=== PATIENT | female | born 1955 | race Caucasian/White ===

== ENCOUNTER → 2016-07-13 | Outpatient (CLI) | payer BC ==
[~2016-07-13] MED LIST: CEPH500C2 PO; FEXO1TAB58 PO; LEVO50TA PO; MULT-506 PO; OXYC-57 PO; PANT40TA PO; VNTHFA/IN INH
--- NOTE | 2016-07-13 14:21 | DIAGNOSTIC IMAGING REPORT ---
LEFT KNEE 1 OR 2 VIEWS ROUTINE CLINICAL HISTORY: Left knee pain. COMPARISON: Knee radiographs April 29, 2008. FINDINGS: Alignment of the left knee is anatomic. No fracture or joint effusion is identified. Joint spaces are preserved. No osseous lesion is identified. IMPRESSION: Unremarkable left knee radiographs. Electronically signed by: Ghulam Del Valle M.D. 07/13/2016 2:20 PM Dictated Date/Time: 07/13/2016 2:18 PM
== END | disposition home or self-care (01) ==
LOC: C.RAD1850 13:11
PROVIDERS: ATTEND Family Medicine
DX: M25.562 Pain in left knee (principal)

== ENCOUNTER → 2016-07-30 | Outpatient (CLI) | payer BC ==
--- NOTE | 2016-07-30 15:38 | DIAGNOSTIC IMAGING REPORT ---
LEFT KNEE 1 OR 2 VIEWS CLINICAL HISTORY: LEFT KNEE PAIN pain COMPARISON: None. DISCUSSION: The bones and joint spaces appear intact. There is no evidence of fracture, dislocation or bony disease. There is no evidence for soft tissue swelling. IMPRESSION: Negative study. Electronically signed by: Aidan Christianson M.D. 07/30/2016 3:37 PM Dictated Date/Time: 07/30/2016 3:37 PM
== END | disposition home or self-care (01) ==
LOC: C.RDSM 15:07
PROVIDERS: ATTEND Physical Medicine & Rehabilitation Sports Medicine
DX: M25.562 Pain in left knee (principal)

== ENCOUNTER → 2016-08-20 | Outpatient (CLI) | payer BC ==
--- NOTE | 2016-08-20 07:38 | DIAGNOSTIC IMAGING REPORT ---
ABDOMEN COMPLETE (US) CLINICAL HISTORY: Right upper quadrant pain. COMPARISON STUDY: CT of the abdomen and pelvis January 30, 2016 and right upper quadrant ultrasound May 19, 2017. FINDINGS: This exam is compromised by suboptimal penetration. Increased hepatic echogenicity represents fatty infiltration. No hepatic lesions are identified and there is no biliary ductal dilatation. The gallbladder is surgically absent. The pancreatic body is normal. The head and tail are partially obscured. The size of the spleen is normal. The right kidney measures 9.7 cm in maximal dimension and the left measures 10.1 cm. A 2.3 cm cyst arises from the lower pole of the right kidney. There is no hydronephrosis. The caliber of the abdominal aorta is normal. Visual portions of the IVC are patent. There is no ascites. IMPRESSION: 1. No biliary ductal dilatation status post cholecystectomy. 2. Fatty liver. 3. No hydronephrosis. Electronically signed by: Ghulam Del Valle M.D. 08/20/2016 7:36 AM Dictated Date/Time: 08/20/2016 7:35 AM
[2016-08-20 09:27] LABS: BASO % 0.3 %; BASO ABS # 0.02 K/uL (0-0.2); COMPLETE YES; EOS % 1.3 %; HEMATOCRIT 43.8 % (37-47); IG% 0.3 %; LYMPH ABS # 3.31 K/uL (1.2-3.4); MEAN CELL VOLUME 85.7 fL (80-100); MEAN CORPUSCULAR HEMOGLOBIN 28.6 pg (25-34); MEAN CORPUSCULAR HGB CONC 33.3 g/dl (32-36); MEAN PLATELET VOLUME 8.9 fL (7.4-10.4); MONO % 6.4 %; NEUT % 42.7 %; PLATELET COUNT 292 K/uL (130-400); RED BLOOD COUNT 5.11 M/uL (4.2-5.4); WHITE BLOOD COUNT 6.75 K/uL (4.8-10.8)
[2016-08-20 09:39] LABS: ALT/SGPT 29 U/L (12-78); BLOOD UREA NITROGEN 17 mg/dl (7-18); BUN/CREATININE RATIO 18.4 (10-20); CALCIUM 9.1 mg/dl (8.5-10.1); CARBON DIOXIDE 26 mmol/L (21-32); CHLORIDE 108 mmol/L (98-107); GLUCOSE 101 mg/dl (70-99); POTASSIUM 4.6 mmol/L (3.5-5.1); SODIUM 141 mmol/L (136-145)
[2016-08-20 09:41] LABS: ALKALINE PHOSPHATASE 74 U/L (45-117); AST/SGOT 19 U/L (15-37)
== END | disposition home or self-care (01) ==
LOC: C.ULTR 06:27
PROVIDERS: ATTEND Family Medicine
DX: R10.11 Right upper quadrant pain (principal); K76.0 Fatty (change of) liver, not elsewhere classified

== ENCOUNTER 2016-09-30 14:08 | Emergency (ER) | payer BC, OTHER ==
[~2016-09-30] VITALS: Ht 154.9 cm; Wt 81.0 kg
[~2016-09-30 14:08] MED LIST changes: -CEPH500C2 PO; -FEXO1TAB58 PO; -LEVO50TA PO; -MULT-506 PO; -PANT40TA PO; -VNTHFA/IN INH
[2016-09-30 14:13] VITALS: BP 154/92; PULSE 114; TEMP 36.8; O2SAT 97; Ht 154.9 cm; Wt 81.0 kg
[2016-09-30] MEDS ORDERED: ACETAMINOPHEN 500 MG TAB PO STA (14:29)
[2016-09-30] MEDS ORDERED: XYLOCAINE 1%/SOD BICARB 20 ML VIAL INFIL ONE (14:30)
[2016-09-30] MEDS ORDERED: VNTHFA/IN INH (14:49)
[2016-09-30] MEDS ORDERED: MULT-506 PO (14:49)
[2016-09-30] MEDS ORDERED: LEVO50TA PO (14:55)
--- NOTE | 2016-09-30 15:04 | DIAGNOSTIC IMAGING REPORT ---
RIGHT THIRD TOE 3 VIEWS HISTORY: Right third toe pain. R/O BONE INVOLVEMENT Right COMPARISON: None. FINDINGS: There is no fracture or dislocation. Mild soft tissue swelling. No radiopaque foreign bodies. IMPRESSION: No fractures within the right third toe. Electronically signed by: Daniele Joseph M.D. 09/30/2016 3:02 PM Dictated Date/Time: 09/30/2016 2:51 PM
[2016-09-30] MEDS ORDERED: CEPH500C2 PO (15:09)
[2016-09-30] MEDS ORDERED: FEXO1TAB58 PO (15:32)
[2016-09-30] MEDS ORDERED: PANT40TA PO (15:32)
--- NOTE | 2016-10-02 09:21 | EMERGENCY ROOM VISIT NOTE ---
ED Visit Note First contact with patient: 14:15 Chief Complaint: I cut my right middle toe at work. History of Present Illness: Ms. Patiño is a 61-year-old white female who ambulates into the ED complaining of a right middle toe laceration. Patient reports approximately one hour ago she was at work carrying a tray of metal fillings. On a piece of metal fell off the tray and struck the top of her right middle toe and she sustained a laceration. Prior to arrival at the hospital she reports coworkers cleansed and control bleeding. Currently she is complaining of a throbbing discomfort over the left middle toe in the area of her laceration. She rates her discomfort 4/10. Her pain is nonradiating. Her pain worsens with palpation and pushing off during ambulation. She has not identified any alleviating factors related to the pain. She has not taken any medications for pain prior to arrival at the hospital. She denies any associated symptoms including ankle pain, other foot pain, toe weakness/numbness/tingling. Review of Systems: As noted above in history of present illness. Past Medical History: Asthma, bronchitis, GERD, hepatic vein thrombosis, hypothyroidism and status post unspecified surgery to the shoulder, cholecystectomy, appendectomy and unspecified hernia repair. Current Medications: Tiki-D, Protonix, multivitamins, albuterol, Synthroid Allergies to Medications: Doxycycline, tetracycline and tramadol. Social History: Patient is currently employed; she feels safe in her home environment; she denies tobacco use and admits to alcohol use. Tetanus Immunization Status: Patient reports up-to-date. Physical Examination: Vital Signs: Date Time Temp Pulse Resp B/P Pulse Ox O2 Delivery O2 Flow Rate FiO2 09/30/16 14:13 36.8 114 18 154/92 97 Room Air GENERAL: 61-year-old female in mild distress due to pain, nontoxic-appearing, afebrile and hemodynamically stable. NEUROLOGICAL: Awake, alert and oriented to person, place and time. Answering questions appropriately and following commands. SKIN: Warm, dry and pink. Right Middle Toe: 2.8 cm full-thickness laceration over the proximal phalanx with no active bleeding. RIGHT FOOT: Soft tissue injury as noted above. There is no gross bony deformity. Minimal tenderness over the DIP and PIP joint but no tenderness extending into the MCP or foot. Full range of motion of the PIP, DIP and MCP joint against resistance. When I opened up the wound to look for foreign material the extensor tendon was exposed within the laceration and was not injured. Throughout the toes the skin was warm and pink and capillary refill is brisk. She is able to distinguish light sensations through all dermatomes. ED Course: Patient is assessed as noted above. Patient was given one gram of Tylenol by mouth for pain. Right Middle Toe X-Rays: Were read by myself and the radiologist showing no acute fractures or dislocations. Wound Repair: Complexity: Basic. Verbal consent was obtained after the risks and benefits were explained. The skin was prepped with betadine and a sterile field set. Wound edges of the wound was anesthetized with 1.3 ml buffered 1% lidocaine. The wound was explored for foreign bodies and none found. Copious irrigation was performed using sterile saline. With direct pressure the bleeding subsided. Debridement was not performed. The wound edges were approximated using 5-0 Ethilon with 5 simple interrupted sutures. Hemostasis and excellent approximation was achieved. Antibacterial ointment and a sterile dressing applied. No complications and the patient tolerated the procedure well. Patient was educated about tonight's findings and instructed on his treatment plan; he verbalizes understanding and agreement with this plan. Clinical Impression: Laceration of the right middle toe. Work related injury. Disposition: Patient discharged home in stable condition; prior to departure he was reassessed and subjectively reported she was pain-free. Plan: Comfort measures, wound care, and signs of infection were discussed with the patient. Because of the exposed tendon patient was prophylactically put on Keflex 500 mg 3 times a day for 7 days. Patient was encouraged to follow-up with Workmen's Compensation or return ED for any signs of infection and/or suture removal in 10-12 days.
== END 2016-09-30 15:20 | disposition home or self-care (01) ==
LOC: C.EDB 14:09 → C.EDD 15:20
DX: S91.115A Laceration without foreign body of left lesser toe(s) without damage to nail, initial encounter (principal); W45.8XXA Other foreign body or object entering through skin, initial encounter; Y92.89 Other specified places as the place of occurrence of the external cause; Y99.0 Civilian activity done for income or pay; J45.909 Unspecified asthma, uncomplicated; K21.9 Gastro-esophageal reflux disease without esophagitis; E03.9 Hypothyroidism, unspecified; Z79.899 Other long term (current) drug therapy

== ENCOUNTER 2016-10-04 13:21 | Emergency (ER) | payer OTHER ==
[~2016-10-04] VITALS: Ht 154.9 cm; Wt 82.1 kg
[~2016-10-04 13:21] MED LIST changes: +CEPH500C2 PO; +FEXO1TAB58 PO; +LEVO50TA PO; +MULT-506 PO; -OXYC-57 PO; +PANT40TA PO; +VNTHFA/IN INH
[2016-10-04 13:46] VITALS: TEMP 37; Ht 154.9 cm; Wt 82.1 kg
--- NOTE | 2016-10-04 14:28 | EMERGENCY ROOM VISIT NOTE ---
History First contact with patient: 13:58 Chief Complaint: FOOT PAIN Stated Complaint: PAIN IN LEFT FOOT History of Present Illness The patient is a 61 year old female who presents to the Emergency Room with complaints of left foot pain and bruising. She states she was here 5 days ago after an incident at work where a metal object fell onto her feet. She states she was wearing flip-flops. She had laceration to her right foot that was repaired at that time, but states she never had her left foot checked. Over the past 2 days she has noticed more pain and bruising to that area especially when she is wearing shoes. She states she is here to get the foot checked to make sure nothing is broken. She denies any numbness, tingling, ankle pain, or any other complaints. Review of Systems GENERAL: Denies fevers, chills, malaise, unintentional weight changes. HEENT: Denies dizziness, visual problems, hearing loss, tinnitus. Denies difficulty swallowing or oral lesions. PULMONARY: Denies cough, shortness of breath, sputum production or hemoptysis. CARDIOVASCULAR: Denies chest pain, palpitations, dyspnea on exertion, orthopnea or peripheral edema. GASTROINTESTINAL: Denies diarrhea, constipation, nausea, vomiting, or abdominal pain. GENITOURINARY: Denies dysuria, frequency, urgency or nocturia. NEUROLOGIC: Denies history of epilepsy, CVA, TIA or chronic headaches. MUSCULOSKELETAL: + Left foot pain, bruising, swelling. Denies history of joint tenderness/swelling. SKIN: Denies rashes or lesions. PSYCHIATRIC: Denies history of depression or mental illness. ENDOCRINE: Denies history of diabetes, thyroid disorders, abnormal hair growth or sexual dysfunction. Past Medical/Surgical History Medical Problems: (1) Asthmatic bronchitis (2) GERD (3) Hepatic vein thrombosis Family History FH: heart disease Social History Smoking Status: Never Smoker Alcohol Use: occasionally Drug Use: none Marital Status: Housing Status: lives with significant other Occupation Status: employed Current/Historical Medications Scheduled Cephalexin Monohydrate (Keflex), 500 MG PO TID Fexofenadine-Pseudoephedrine (Tiki-D 24 Hour Allergy), 1 TAB PO QAM Levothyroxine Sodium (Synthroid), 50 MCG PO DAILY Multivitamin (Multivitamin), 1 TAB PO QAM Pantoprazole (Protonix), 40 MG PO QAM Scheduled PRN Albuterol Hfa (Ventolin Hfa), 2 PUFFS INH Q4H PRN for RN Allergies Coded Allergies: Doxycycline (Verified Allergy, Intermediate, RASH, 10/04/16) Tramadol (Verified Allergy, Intermediate, rash, 10/04/16) Tetracyclines (Verified Allergy, Mild, RASH, 10/04/16) Physical Exam Vital Signs Date Time Temp Pulse Resp B/P Pulse Ox O2 Delivery O2 Flow Rate FiO2 10/04/16 15:46 98 18 138/93 95 10/04/16 15:41 98 18 138/93 95 Room Air 10/04/16 13:46 37.0 95 18 145/89 96 Room Air Physical Exam CONSTITUTIONAL: No acute distress. Well appearing and well nourished. Alert and oriented X 4 with normal affect. HEENT: Normocephalic, atraumatic. Pupils equal, round and reactive to light, EOMI. TMs normal. Pharynx normal. NECK: Supple, full active range of motion without discomfort. RESPIRATORY: Clear to auscultation bilaterally with no wheezing, crackles, rhonchi or stridor. Equal expansion bilaterally. CARDIOVASCULAR: Regular rate and rhythm with no murmurs, rubs or gallops. Normal peripheral perfusion. No edema. GASTROINTESTINAL: Soft, nontender, nondistended. Bowel sounds present in all quadrants. MUSCULOSKELETAL: Full range of motion of all joints without discomfort. There is mild swelling and ecchymosis to the dorsum of the left foot, tender to palpation. DP and PT pulses intact. Brisk cap refill. Sensation intact. INTEGUMENTARY: No rash or other significant dermatologic conditions noted. NEUROLOGIC: Cranial nerves II-XII grossly intact. No focal neurologic deficits noted. Medical Decision & Procedures ER Provider Diagnostic Interpretation: LEFT FOOT MIN 3 VIEWS ROUTINE CLINICAL HISTORY: Left foot pain and bruising following trauma. COMPARISON: Left foot radiograph August 08, 2014. FINDINGS: The tarsometatarsal joints are intact. No acute fracture is identified. Alignment of the left foot is anatomic. IMPRESSION: No acute fracture or dislocation of the left foot. Medical Decision Patient with left foot contusion, x-ray shows no acute bony abnormality. Patient was offered Tylenol or ibuprofen for pain, she declines this stating her pain is not that bad. Patient encouraged to continue follow-up with her PCP as indicated, she verbalized understanding. Impression Primary Impression: Contusion of foot Departure Information Dispostion Home / Self-Care Condition GOOD Referrals Coral Crisostomo D.O. (PCP) Patient Instructions ED Contusion Foot, My [facility] Additional Instructions Please continue follow-up with her PCP as directed. You may take Tylenol or ibuprofen as needed for pain. Ice/heat therapy may also be helpful for your pain. This return to the ER for any new or worsening symptoms or concerns. Problem Qualifiers Primary Impression: Contusion of foot Encounter type: initial encounter Laterality: left Qualified Codes: S90.32XA - Contusion of left foot, initial encounter
--- NOTE | 2016-10-04 14:47 | DIAGNOSTIC IMAGING REPORT ---
LEFT FOOT MIN 3 VIEWS ROUTINE CLINICAL HISTORY: Left foot pain and bruising following trauma. COMPARISON: Left foot radiograph August 08, 2014. FINDINGS: The tarsometatarsal joints are intact. No acute fracture is identified. Alignment of the left foot is anatomic. IMPRESSION: No acute fracture or dislocation of the left foot. Electronically signed by: Ghulam Del Valle M.D. 10/04/2016 2:46 PM Dictated Date/Time: 10/04/2016 2:42 PM
[2016-10-04 15:46] VITALS: BP 138/93; PULSE 98; O2SAT 95
== END 2016-10-04 15:47 | disposition home or self-care (01) ==
LOC: C.EDB 13:22 → C.EDD 15:47
DX: S90.32XD Contusion of left foot, subsequent encounter (principal); W20.8XXD Other cause of strike by thrown, projected or falling object, subsequent encounter; Y99.0 Civilian activity done for income or pay; Y92.89 Other specified places as the place of occurrence of the external cause; J45.909 Unspecified asthma, uncomplicated; K21.9 Gastro-esophageal reflux disease without esophagitis; Z86.718 Personal history of other venous thrombosis and embolism; Z79.899 Other long term (current) drug therapy

== ENCOUNTER 2016-10-10 07:21 | Emergency (ER) | payer OTHER ==
[~2016-10-10] VITALS: Ht 157.5 cm; Wt 81.5 kg
[~2016-10-10 07:21] MED LIST changes: -CEPH500C2 PO
[2016-10-10 07:28] VITALS: BP 145/92; PULSE 98; TEMP 36.7; O2SAT 97; Ht 157.5 cm; Wt 81.5 kg
--- NOTE | 2016-10-10 07:48 | EMERGENCY ROOM VISIT NOTE ---
ED Visit Note First contact with patient: 07:32 CHIEF COMPLAINT: Suture removal This patient returns to the ED today for removal of sutures that were placed 10 days ago. There has been no swelling, redness, or drainage from the wound. The patient feels like the laceration is healing well. REVIEW OF SYSTEMS: Head: No headache, injury or neck pain. Skin: No rash, new lesions, or masses. General: No fever or chills, fatigue, loss of appetite , or significant recent weight gain or loss. PMH: The patient is healthy; there is no significant medical or surgical history. SOCIAL HISTORY: Patient lives at home. PHYSICAL EXAM: Vital Signs: Reviewed Nurse's notes. There is a sutured wound on the middle toe with no signs of infection. There is no erythema, swelling, or tenderness. EMERGENCY DEPARTMENT COURSE: The sutures were removed without any difficulty and there was no separation of the wound edges. DIAGNOSIS: Healing laceration and suture removal DISCHARGE INSTRUCTIONS AND TREATMENT: Wash any remaining crusts off of the wound today and resume your normal activities. Problem List Medical Problems: (1) GERD Status: Chronic (2) Hepatic vein thrombosis Status: Resolved Current/Historical Medications Scheduled Fexofenadine-Pseudoephedrine (Tiki-D 24 Hour Allergy), 1 TAB PO QAM Levothyroxine Sodium (Synthroid), 50 MCG PO DAILY Multivitamin (Multivitamin), 1 TAB PO QAM Pantoprazole (Protonix), 40 MG PO QAM Scheduled PRN Albuterol Hfa (Ventolin Hfa), 2 PUFFS INH Q4H PRN for RN Allergies Coded Allergies: Doxycycline (Verified Allergy, Intermediate, RASH, 10/10/16) Tramadol (Verified Allergy, Intermediate, rash, 10/10/16) Tetracyclines (Verified Allergy, Mild, RASH, 10/10/16) Vital Signs Date Time Temp Pulse Resp B/P Pulse Ox O2 Delivery O2 Flow Rate FiO2 10/10/16 07:28 36.7 98 16 145/92 97 Room Air Departure Information Impression Primary Impression: Encounter for removal of sutures Dispostion Home / Self-Care Condition GOOD Referrals Coral Crisostomo D.O. (PCP) Forms HOME CARE DOCUMENTATION FORM, School Instructions, Work Instructions, IMPORTANT VISIT INFORMATION Patient Instructions My [facility], ED Wound Check Sutr Remove No Infec Additional Instructions You have been examined and treated today on an emergency basis only. This is not a substitute for, or an effort to provide, complete comprehensive medical care. It is impossible to recognize and treat all injuries or illnesses in a single emergency department visit. It is therefore important that you follow up closely with Dr Crisostomo. Call as soon as possible for an appointment. Thank you for your time and consideration. I look forward to speaking with you again soon. Please don't hesitate to call us if you have any questions.
== END 2016-10-10 07:50 | disposition home or self-care (01) ==
LOC: C.EDB 07:22
DX: Z48.02 Encounter for removal of sutures (principal); S91.119D Laceration without foreign body of unspecified toe without damage to nail, subsequent encounter; X58.XXXD Exposure to other specified factors, subsequent encounter; K21.9 Gastro-esophageal reflux disease without esophagitis; Z86.718 Personal history of other venous thrombosis and embolism; Z79.899 Other long term (current) drug therapy

== ENCOUNTER → 2016-11-04 | Outpatient (CLI) | payer BC ==
--- NOTE | 2016-11-04 17:15 | DIAGNOSTIC IMAGING REPORT ---
CHEST AND ABDOMEN 2 VIEWS HISTORY: Right upper quadrant abdominal pain. COMPARISON: Chest 04/14/2016. Abdomen and pelvis CT 01/30/2016. FINDINGS: The lungs are clear. The heart is normal in size. Cholecystectomy. No pneumoperitoneum. No pneumatosis. No renal or ureteral calculi. No dilated loops of small bowel to suggest an obstruction. IMPRESSION: No acute cardiopulmonary process. No evidence for bowel obstruction. Electronically signed by: Daniele Joseph M.D. 11/04/2016 5:14 PM Dictated Date/Time: 11/04/2016 5:12 PM
== END | disposition home or self-care (01) ==
LOC: C.RAD1850 16:40
PROVIDERS: ATTEND Nurse Practitioner Family
DX: I81 Portal vein thrombosis (principal); R10.11 Right upper quadrant pain; R14.0 Abdominal distension (gaseous)

== ENCOUNTER → 2016-11-05 | Outpatient (CLI) | payer BC ==
--- NOTE | 2016-11-05 07:17 | DIAGNOSTIC IMAGING REPORT ---
DOPPLER ULTRASOUND OF THE MAJOR HEPATIC VESSELS CLINICAL HISTORY: Abdominal distention. Evaluate for portal venous thrombus. COMPARISON STUDY: CT of the abdomen and pelvis January 30, 2016 and abdominal ultrasound August 20, 2016. FINDINGS: The main, left and right portal veins are patent with appropriately directed flow. Hepatic veins are partially obscured but appear patent. This exam is compromised by suboptimal penetration. IMPRESSION: 1. Patent major hepatic vessels with appropriately directed flow. 2. Study compromised by suboptimal penetration. Electronically signed by: Ghulam Del Valle M.D. 11/05/2016 7:16 AM Dictated Date/Time: 11/05/2016 7:11 AM
== END | disposition home or self-care (01) ==
LOC: C.ULTR 06:18
PROVIDERS: ATTEND Nurse Practitioner Family
DX: R14.0 Abdominal distension (gaseous) (principal); R10.11 Right upper quadrant pain; I81 Portal vein thrombosis

== ENCOUNTER → 2016-11-11 | Outpatient (CLI) | payer BC ==
--- NOTE | 2016-11-16 16:18 | PULMONARY FUNCTION TEST ---
Interpretation is based off ACCP/ATS criteria. SPIROMETRY: Within normal limits. INTERPRETATION: Normal spirometry.
== END | disposition home or self-care (01) ==
LOC: C.RC 12:32
PROVIDERS: ATTEND Family Medicine
DX: J02.9 Acute pharyngitis, unspecified (principal); J45.20 Mild intermittent asthma, uncomplicated; J20.9 Acute bronchitis, unspecified

== ENCOUNTER → 2016-12-27 | Outpatient (CLI) | payer BC | END | disposition home or self-care (01) | LOC: C.PATHSPEC 11:47 | PROVIDERS: ATTEND Ophthalmology | DX: H02.824 Cysts of left upper eyelid (principal) ==

== ENCOUNTER → 2016-12-31 | Outpatient (CLI) | payer BC ==
--- NOTE | 2016-12-31 15:41 | EXERCISE STRESS ECHO ---
*NOTICE TO RECEIVING REPUBLICAN AGENCY This information is strictly Confidential and protected under [place] law. [place] law prohibits you from making any further disclosure of this information unless further disclosure is expressly permitted by the written consent of the person to whom it pertains or is authorized by law. A general authorization for the release of medical or other information is not sufficient for this purpose. Hospital accepts no responsibility if the information is made available to any other person, INCLUDING THE PATIENT. Interpretation Summary * Name: ALEXX WOLF Study Date: 12/31/2016 11:42 AM BP: 128/95 mmHg * Patient Location: [facility] HR: 102 * : 1955 (M/d/yyyy) Gender: Female Height: 61 in * Age: 61 yrs Ethnicity: [place] Weight: 169 lb * Ordering Physician: Addi Donnelly * Referring Physician: Addi Donnelly PA-C * Performed By: Adalberto Spann MD * * Reason For Study: SOB with Chest Pain * BSA: 1.8 m2 * -- Conclusions -- * Left ventricular systolic function is normal. * Grade I diastolic dysfunction, (abnormal relaxation pattern). * Diagnostic exercise echocardiogram without evidence of inducible ischemia Procedure Details * Left Ventricular Findings with Stress Diagnostic exercise echocardiogram without evidence of inducible ischemia * Left Ventricle The left ventricle is normal in size. There is normal left ventricular wall thickness. Left ventricular systolic function is normal. Grade I diastolic dysfunction, (abnormal relaxation pattern). The left ventricular wall motion is normal at rest. * Right Ventricle The right ventricle is grossly normal size. The right ventricular systolic function is normal. * Atria The left atrial size is normal. Right atrial size is normal. * Mitral Valve The mitral valve is grossly normal. There is trace mitral regurgitation. * Tricuspid Valve The tricuspid valve is not well visualized, but is grossly normal. Significant tricuspid regurgitation is absent. * Aortic Valve The aortic valve is normal in structure and function. No hemodynamically significant valvular aortic stenosis. There is no significant aortic regurgitation. * Pericardium There is no pericardial effusion. * Stress Parameters Normal baseline electrocardiogram. Some ST segement flattening at peak exertion. No definite ischemia changes The stress portion of this study was personally supervised by the undersigned interpreting physician. Rest heart rate was '93' BPM. Rest blood pressure was '128/95' Maximum heart rate achieved was 166 bpm. Maximum heart rate was 103 % of maximum age-predicted heart rate. Maximum blood pressure was '168/74' Total exercise time was '6' Maximum exercise MET level achieved was '7' METS Maximum treadmill speed was '2.5' miles per hour. Maximum treadmill elevation was '12'% grade. Exercise was terminated due to 'Fatigue' * Left Ventricular Findings with Stress Baseline echocardiogram was normal. Normal augmentation without defintie inducible wall motion abnormalities Patient did have some left arm pain with exertion. No development of her index chest pain. HR response was rapid. BP response was normal. Willis treadmill score: 2 (moderate risk) * * MMode 2D Measurements and Calculations * IVSd 0.90 cm * * LVIDd 4.3 cm * LVIDs 2.6 cm * LVPWd 1.0 cm * * IVS/LVPW 0.90 * FS 40.0 % * EDV(Teich) 85.3 ml * ESV(Teich) 24.8 ml * EF(Teich) 70.9 % * * EDV(cubed) 82.3 ml * ESV(cubed) 17.8 ml * EF(cubed) 78.4 % * * LV mass(C)d 135.8 grams * LV mass(C)dI 77.2 grams/m\S\2 * * SV(Teich) 60.5 ml * SI(Teich) 34.4 ml/m\S\2 * SV(cubed) 64.5 ml * SI(cubed) 36.7 ml/m\S\2 * * LVAd ap4 24.9 cm\S\2 * LVLd ap4 7.6 cm * EDV(MOD-sp4) 66.2 ml * EDV(sp4-el) 69.5 ml * LVAs ap4 10.9 cm\S\2 * LVLs ap4 6.1 cm * ESV(MOD-sp4) 16.5 ml * ESV(sp4-el) 16.7 ml * EF(MOD-sp4) 75.0 % * EF(sp4-el) 76.0 % * * LVAd ap2 17.2 cm\S\2 * LVLd ap2 7.0 cm * EDV(MOD-sp2) 35.7 ml * EDV(sp2-el) 35.5 ml * LVAs ap2 7.9 cm\S\2 * LVLs ap2 5.2 cm * ESV(MOD-sp2) 10.3 ml * ESV(sp2-el) 10.3 ml * EF(MOD-sp2) 71.0 % * EF(sp2-el) 71.0 % * * LVLd %diff -7.59 % * EDV(MOD-bp) 49.1 ml * LVLs %diff -18.05 % * ESV(MOD-bp) 13.9 ml * EF(MOD-bp) 71.7 % * * SV(MOD-sp4) 49.6 ml * SI(MOD-sp4) 28.2 ml/m\S\2 * * SV(MOD-sp2) 25.3 ml * SI(MOD-sp2) 14.4 ml/m\S\2 * * SV(MOD-bp) 35.2 ml * SI(MOD-bp) 20.0 ml/m\S\2 * * SV(sp4-el) 52.8 ml * SI(sp4-el) 30.0 ml/m\S\2 * * SV(sp2-el) 25.2 ml * SI(sp2-el) 14.3 ml/m\S\2 * * * * * Doppler Measurements and Calculations * Ao V2 max 126.2 cm/sec * Ao max PG 6.4 mmHg * Ao max PG (full) 1.1 mmHg * * LV V1 max PG 5.2 mmHg * * LV V1 max 114.5 cm/sec * * *
== END | disposition home or self-care (01) ==
LOC: C.CPL 11:24
PROVIDERS: ATTEND Physician Assistant
DX: R06.00 Dyspnea, unspecified (principal); R07.9 Chest pain, unspecified

== ENCOUNTER → 2017-01-12 | Outpatient (CLI) | payer BC ==
--- NOTE | 2017-01-12 16:27 | DIAGNOSTIC IMAGING REPORT ---
C-SPINE ROUTINE 4 OR 5 VIEWS HISTORY: 61 years-old Female ARTHRITIS chronic neck pain. COMPARISON: None available TECHNIQUE: 5 views of the cervical spine FINDINGS: The seventh vertebral segment is partially obscured by patient's shoulder. Mild uncovertebral spurring contributes to a degree of right-sided neuroforaminal narrowing at C3-C4. There is no significant intervertebral disc space narrowing identified. Alignment is satisfactory. Minimal posterior intervertebral disc space narrowing is seen at C5-C6. Multilevel uncovertebral spurring is also present. The odontoid process and lateral pillars of C1 appear intact. No prevertebral soft tissue swelling. Lung apices are clear. IMPRESSION: 1. No acute fracture or subluxation. 2. Only minimal degenerative changes as above. The above report was generated using voice recognition software. It may contain grammatical, syntax or spelling errors. Electronically signed by: Sotero Morales M.D. 01/12/2017 4:26 PM Dictated Date/Time: 01/12/2017 4:24 PM
== END | disposition home or self-care (01) ==
LOC: C.RAD1850 16:01
PROVIDERS: ATTEND Physician Assistant
DX: M19.90 Unspecified osteoarthritis, unspecified site (principal)

== ENCOUNTER → 2017-01-20 | Outpatient (CLI) | payer BC ==
--- NOTE | 2017-01-20 15:57 | DIAGNOSTIC IMAGING REPORT ---
RIGHT FINGER(S) MIN 2 VIEWS ROUTINE CLINICAL HISTORY: 61 years-old Female presenting with FINGER PAIN Right. TECHNIQUE: Frontal, oblique, and lateral views of the right fourth finger were obtained. COMPARISON: None. FINDINGS: No acute fracture or malalignment. Minimal marginal osteophytes may be present at both the head of the proximal and middle phalanges, suggesting minimal degenerative change. No appreciable soft tissue swelling. Partially visualized fixation screw in the distal carpal row. IMPRESSION: No acute osseous injury. Suggestion of minimal degenerative change at the proximal and distal interphalangeal joints. Electronically signed by: Krish Radford M.D. 01/20/2017 3:56 PM Dictated Date/Time: 01/20/2017 3:54 PM
== END | disposition home or self-care (01) ==
LOC: C.RAD1850 15:46
PROVIDERS: ATTEND Family Medicine
DX: M79.644 Pain in right finger(s) (principal)

== ENCOUNTER → 2017-08-02 | Outpatient (CLI) | payer BC ==
--- NOTE | 2017-08-02 16:35 | DIAGNOSTIC IMAGING REPORT ---
R FOOT MIN 3 VIEWS ROUTINE CLINICAL HISTORY: Right foot pain and. COMPARISON: None FINDINGS: Tarsometatarsal joints are intact. There is no acute fracture or dislocation within the right foot. There is minimal plantar calcaneal spurring. No erosions are identified. There is minimal osteoarthritis within several articulations of the right foot. IMPRESSION: 1. No acute fracture or dislocation within the right foot. 2. Minimal plantar calcaneal spurring. 3. 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 Electronically signed by: Ghulam Del Valle M.D. 08/02/2017 4:33 PM Dictated Date/Time: 08/02/2017 4:31 PM
== END | disposition home or self-care (01) ==
LOC: C.RAD1850 15:57
PROVIDERS: ATTEND Family Medicine
DX: M79.671 Pain in right foot (principal); M77.31 Calcaneal spur, right foot; M19.071 Primary osteoarthritis, right ankle and foot; Z88.1 Allergy status to other antibiotic agents

== ENCOUNTER → 2017-08-19 | Outpatient (CLI) | payer BC ==
--- NOTE | 2017-08-19 12:04 | DIAGNOSTIC IMAGING REPORT ---
ABDOMINAL ULTRASOUND, RIGHT UPPER QUADRANT HISTORY: Right upper quadrant abdominal pain. COMPARISON: Abdominal ultrasound August 20, [address] of the abdomen and pelvis January 30, 2016. FINDINGS: This exam is moderately compromised by suboptimal acoustic penetration related to body habitus. Increased hepatic echogenicity is noted. The caliber of the common bile duct is at the upper limits of normal, measuring 6 mm, following cholecystectomy. The distal common bile duct is obscured. The pancreatic body is normal. The head and tail are obscured by overlying bowel gas. There is no right hydronephrosis. IMPRESSION: 1. Fatty infiltration of the liver. 2. No biliary ductal dilatation status post cholecystectomy. 3. Study moderately compromised by suboptimal penetration. Partially obscured pancreas. Electronically signed by: Ghulam Del Valle M.D. 08/19/2017 12:02 PM Dictated Date/Time: 08/19/2017 12:01 PM
== END | disposition home or self-care (01) ==
LOC: C.ULTR 11:26
PROVIDERS: ATTEND Family Medicine
DX: R10.9 Unspecified abdominal pain (principal); K76.0 Fatty (change of) liver, not elsewhere classified; Z90.49 Acquired absence of other specified parts of digestive tract

== ENCOUNTER → 2017-08-30 | Outpatient (CLI) | payer BC ==
[~2017-08-30] MED LIST changes: +OPTIRAY 320 IV PRN
--- NOTE | 2017-08-30 14:37 | DIAGNOSTIC IMAGING REPORT ---
CT SCAN OF THE ABDOMEN WITH IV CONTRAST CLINICAL HISTORY: Right upper quadrant abdominal pain. COMPARISON STUDY: Abdominal CT dated 01/30/2016. TECHNIQUE: Following the IV administration of 93 cc of Optiray 320, CT scan of the abdomen is performed from the lung bases to the pelvic inlet. Images are reviewed in the axial, sagittal, and coronal planes. IV contrast was administered without complication. A dose lowering technique was utilized adhering to the principles of ALARA. CT DOSE: 588.52 mGycm FINDINGS: Lung bases: The heart is normal in size and without pericardial effusion. The lung bases are clear. There is a small hiatal hernia. Liver: The contrast-enhanced liver is top normal in size measuring 18.0 cm and length. The liver demonstrates diffusely diminished attenuation consistent with hepatic steatosis. There is no intrahepatic biliary ductal dilatation. The hepatic veins and portal veins are patent. Gallbladder: Surgically absent noting clips in the gallbladder fossa. Spleen: Normal in size and attenuation. Pancreas: Unremarkable. Adrenal glands: Unremarkable. Kidneys: The contrast enhanced kidneys demonstrate mild cortical atrophy and are without hydronephrosis. The kidneys enhance symmetrically. A 2.5 cm exophytic cyst arises from the lower pole of the right kidney. Additional scattered subcentimeter cortical hypodensities also likely represent cysts but are too small for definitive characterization. Abdominal vasculature: The abdominal aorta is normal in course and caliber. Bowel: Visualized portions of the bowel show no evidence of obstruction. Peritoneum: There is no intraperitoneal free air or abdominal ascites. There is a small fat-containing umbilical hernia with evidence of previous hernia repair. Lymphadenopathy: None. Skeletal structures: The skeletal structures are osteopenic. No lytic or blastic lesions are seen. IMPRESSION: 1. There are no acute infectious or inflammatory findings in the abdomen. 2. Hepatic steatosis. Electronically signed by: Marvel Munroe M.D. 08/30/2017 2:35 PM Dictated Date/Time: 08/30/2017 2:31 PM
== END ==
LOC: C.CTS 14:07
PROVIDERS: ATTEND Family Medicine
DX: R10.9 Unspecified abdominal pain (principal); Z88.1 Allergy status to other antibiotic agents

== ENCOUNTER 2017-09-26 10:19 | Emergency (ER) | payer BC ==
[~2017-09-26] VITALS: Ht 154.9 cm; Wt 81.8 kg
[~2017-09-26 10:19] MED LIST changes: -OPTIRAY 320 IV PRN
[2017-09-26 10:24] VITALS: TEMP 36.7; Ht 154.9 cm; Wt 81.8 kg
[2017-09-26] MEDS ORDERED: THY/30 PO (10:44)
[2017-09-26 10:54] VITALS: O2SAT 99
[2017-09-26 11:40] LABS: BASO % 0.2 %; BASO ABS # 0.02 K/uL (0-0.2); EOS % 0.5 %; EOS ABS # 0.05 K/uL (0-0.5); HEMATOCRIT 39.2 % (37-47); IG# 0.03 K/uL (0.00-0.02); LYMPH % 47.2 %; LYMPH ABS # 4.79 K/uL (1.2-3.4); MEAN CELL VOLUME 76.4 fL (80-100); MEAN CORPUSCULAR HEMOGLOBIN 25.3 pg (25-34); MEAN CORPUSCULAR HGB CONC 33.2 g/dl (32-36); MEAN PLATELET VOLUME 8.4 fL (7.4-10.4); MONO % 5.1 %; MONO ABS # 0.52 K/uL (0.11-0.59); NEUT % 46.7 %; NEUT ABS # 4.74 K/uL (1.4-6.5); PLATELET COUNT 362 K/uL (130-400); RED CELL DISTRIBUTION WIDTH CV 16.8 % (11.5-14.5); RED CELL DISTRIBUTION WIDTH SD 47.2 fL (36.4-46.3); WHITE BLOOD COUNT 10.15 K/uL (4.8-10.8)
--- NOTE | 2017-09-26 11:42 | EMERGENCY ROOM VISIT NOTE ---
History First contact with patient: 11:02 Chief Complaint: ARM PAIN Stated Complaint: LEFT ARM PAIN History of Present Illness The patient is a 62 year old female who presents to the Emergency Room with complaints of left arm pain radiating from the shoulder to the wrist which began approximately 2 weeks ago. The patient states yesterday, she began experiencing left lower molar pain radiating into her left jaw. She did recently see her dentist approximately 1 week ago, and states she was told everything was okay. Last evening, she was drinking coffee with a friend, when a "weird feeling" came over her. She describes feeling sweaty, nauseated, and mildly lightheaded. This episode lasted "a few minutes" then improved. She denies any palpitations, vomiting, dyspnea, chest pain or pressure, or other concerning symptoms at that time. She does have a history of bronchial asthma so occasionally does get some discomfort in her chest while walking, but within the past year did have a stress echo and EKGs performed which were normal. She is currently experiencing no symptoms. Symptoms are occasionally worsened on exertion around. She denies any personal cardiac history or vascular disease. She denies any associated chest pressure or dyspnea new or different than previously. She states she attempted to rub the shoulder and jaw with the pain , as it was an achy sensation, but did not notice any change in the discomfort with this activity. 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 She denies any palpitations or swelling with her symptoms. She does have a family history of cardiovascular disease in her father at approximately the age of 60. The patient is not a current smoker. Review of Systems A complete 10 point review of systems was reviewed with the patient with pertinent positives and negatives as per history of present illness. All else were negative. Past Medical/Surgical History Medical Problems: (1) Asthmatic bronchitis (2) GERD (3) Hepatic vein thrombosis Family History FH: heart disease Social History Smoking Status: Never Smoker Smokeless Tobacco Use: No Alcohol Use: occasionally Drug Use: none Marital Status: Housing Status: lives with significant other Occupation Status: employed Current/Historical Medications Scheduled Fexofenadine-Pseudoephedrine (Tiki-D 24 Hour Allergy), 1 TAB PO QAM Multivitamin (Multivitamin), 1 TAB PO QAM Pantoprazole (Protonix), 40 MG PO QAM Thyroid ([place] Thyroid), 30 MG PO DAILY Scheduled PRN Albuterol Hfa (Ventolin Hfa), 2 PUFFS INH Q4H PRN for RN Physical Exam Vital Signs Date Time Temp Pulse Resp B/P (MAP) Pulse Ox O2 Delivery O2 Flow Rate FiO2 09/26/17 12:50 88 18 137/73 99 09/26/17 12:19 86 19 145/73 96 Room Air 09/26/17 11:32 146/86 09/26/17 11:24 90 17 98 Room Air 09/26/17 11:19 87 20 98 Room Air 09/26/17 11:01 159/87 09/26/17 10:54 99 Room Air 09/26/17 10:49 88 23 99 Room Air 09/26/17 10:49 88 09/26/17 10:44 173/92 09/26/17 10:24 36.7 94 20 142/90 100 Room Air Physical Exam VITALS: Vitals are noted on the nurse's note and reviewed by myself. Vital signs stable. GENERAL: This is a 62-year-old white female, in no acute distress, nondiaphoretic, well-developed well-nourished. SKIN: The skin was without rashes, erythema, edema, or bruising. There is no tenting of the skin. Capillary reflex less than 2 seconds. HEAD: Normocephalic atraumatic. EARS: External auditory canals clear, tympanic membranes pearly best without erythema or effusion bilaterally. EYES: Pupils equal round and reactive to light and accommodation. Conjunctivae without injection, sclerae without icterus. Extraocular movements intact. NOSE: Patent, turbinates without inflammation or discharge. No sinus tenderness. MOUTH: Mucous membranes moist. Tonsils are not enlarged. Pharynx without erythema or exudate. Uvula midline. Airway patent. Tongue does not deviate. Overall good dentition. No discomfort on percussion with a tongue depressor over the teeth. Mild tenderness over the left mandible, just anteriorly to the TMJ. NECK: Supple without nuchal rigidity. No lymphadenopathy. No thyromegaly. Cervical spine is nontender. No JVD. HEART: Regular rate and rhythm without murmurs gallops or rubs. LUNGS: Clear to auscultation bilaterally without wheezes, rales or rhonchi. No dullness to percussion. No retractions or accessory muscle use. ABDOMEN: Positive bowel sounds x 4. Normal tympanic percussion. Soft, nontender, without masses or organomegaly. Beyer sign negative. No guarding or rebound tenderness. MUSCULOSKELETAL: No muscle atrophy, erythema, or edema noted. Full range of motion without joint tenderness in all extremities. No tenderness to palpation. Normal gait. Strength 5/5 throughout. NEURO: Patient was alert and oriented to person place and time. Normal sensation to light and sharp touch. Deep tendon reflexes 2+ throughout. No focal neurological deficits. Medical Decision & Procedures Laboratory Results 09/26/17 10:45 Red Blood Count 5.13, Mean Corpuscular Volume 76.4, Mean Corpuscular Hemoglobin 25.3, Mean Corpuscular Hemoglobin Concent 33.2, Mean Platelet Volume 8.4, Neutrophils (%) (Auto) 46.7, Lymphocytes (%) (Auto) 47.2, Monocytes (%) (Auto) 5.1, Eosinophils (%) (Auto) 0.5, Basophils (%) (Auto) 0.2, Neutrophils # (Auto) 4.74, Lymphocytes # (Auto) 4.79, Monocytes # (Auto) 0.52, Eosinophils # (Auto) 0.05, Basophils # (Auto) 0.02 09/26/17 10:45 Test 09/26/17 10:45 09/26/17 11:29 White Blood Count 10.15 K/uL (4.8-10.8) Red Blood Count 5.13 M/uL (4.2-5.4) Hemoglobin 13.0 g/dL (12.0-16.0) Hematocrit 39.2 % (37-47) Mean Corpuscular Volume 76.4 fL (80-100) Mean Corpuscular Hemoglobin 25.3 pg (25-34) Mean Corpuscular Hemoglobin Concent 33.2 g/dl (32-36) Platelet Count 362 K/uL (130-400) Mean Platelet Volume 8.4 fL (7.4-10.4) Neutrophils (%) (Auto) 46.7 % Lymphocytes (%) (Auto) 47.2 % Monocytes (%) (Auto) 5.1 % Eosinophils (%) (Auto) 0.5 % Basophils (%) (Auto) 0.2 % Neutrophils # (Auto) 4.74 K/uL (1.4-6.5) Lymphocytes # (Auto) 4.79 K/uL (1.2-3.4) Monocytes # (Auto) 0.52 K/uL (0.11-0.59) Eosinophils # (Auto) 0.05 K/uL (0-0.5) Basophils # (Auto) 0.02 K/uL (0-0.2) RDW Standard Deviation 47.2 fL (36.4-46.3) RDW Coefficient of Variation 16.8 % (11.5-14.5) Immature Granulocyte % (Auto) 0.3 % Immature Granulocyte # (Auto) 0.03 K/uL (0.00-0.02) Prothrombin Time 10.5 SECONDS (9.0-12.0) Prothromb Time International Ratio 1.0 (0.9-1.1) Activated Partial Thromboplast Time 25.6 SECONDS (21.0-31.0) Partial Thromboplastin Ratio 1.0 Anion Gap 5.0 mmol/L (3-11) Est Creatinine Clear Calc Drug Dose 53.5 ml/min Estimated GFR () 64.9 Estimated GFR (Non- 56.0 BUN/Creatinine Ratio 19.3 (10-20) Calcium Level 9.0 mg/dl (8.5-10.1) Total Bilirubin 0.3 mg/dl (0.2-1) Aspartate Amino Transf (AST/SGOT) 17 U/L (15-37) Alanine Aminotransferase (ALT/SGPT) 27 U/L (12-78) Alkaline Phosphatase 79 U/L (45-117) Creatine Kinase MB 2.4 ng/ml (0.5-3.6) Troponin I < 0.015 ng/ml (0-0.045) Total Protein 7.9 gm/dl (6.4-8.2) Albumin 3.8 gm/dl (3.4-5.0) Globulin 4.1 gm/dl (2.5-4.0) Albumin/Globulin Ratio 0.9 (0.9-2) Creatine Kinase MB Ratio (0-3.0) ECG Per My Interpretation Indication: chest pain, diaphoresis, nausea Rate (beats per minute): 83 Rhythm: normal sinus Findings: no acute ischemic change, no ectopy Comparison ECG Date: 05/15/15 Change: no significant change ED Course The patient was seen and evaluated as above. I reviewed prior medical records and noted a stress echo performed last December without any significant findings. IV access obtained, labs drawn. EKG performed. This was reviewed and interpreted by myself as above. Chest x-ray performed. I reviewed all labs and imaging. I discussed the case with Dr. Moulton. We were in agreement with the assessment and plan. Discharge instructions reviewed, patient was discharged home in good condition. Medical Decision This is a 62-year-old female patient presents to the emergency department today complaining of intermittent left arm and left jaw pain 2 weeks. She has been asymptomatic while here in the emergency department. The patient denies any significant chest pain, but does report a strange sensation in her chest yesterday. She reports an episode where she got a weird feeling in her chest, and became sweaty and nauseated. This lasted for only a short time, and improved quickly. She has not experienced anything similar since. This in addition to the left arm pain and left jaw pain prompted the patient to contact her PCP, who recommended she come to the emergency department for evaluation. While here, her workup was overall negative. No significant findings and labs, chest x-ray, or EKG. Previous medical records reviewed, the patient has had a relatively recent stress echocardiogram. The patient's cardiac enzymes were not elevated, and we are almost 24 hours since the episode of chest discomfort. I do not feel that the patient needs repeat cardiac enzyme testing or EKG. I suspect more of a muscular etiology of the patient's symptoms. The patient states she has been under a significant amount of stress, and feels that it is possible that could contribute to her symptoms as well. I did encourage her to follow-up closely with her PCP and possibly consider a repeat stress test. The patient was agreeable. The patient was certainly invited back to the emergency department for any significantly worsening symptoms as outlined below. Etiologies such as cardiac ischemia, aortic dissection, pulmonary embolism, pneumonia, pneumothorax, musculoskeletal, infections, gastrointestinal, as well as others were entertained. The chart was completed utilizing [employer] voice recognition software. Grammatical errors, random word insertions, pronoun errors, and incomplete sentences are an occasional consequence of this system due to software limitations, ambient noise, and hardware issues. Any formal questions or concerns about the content, text, or information contained within the body of this dictation should be directly addressed to the provider for clarification. Medication Reconcilliation Current Medication List: was personally reviewed by me Blood Pressure Screening Patient's blood pressure: Normal blood pressure Impression Primary Impression: Arm pain, left Additional Impressions: Jaw pain, non-TMJ Non-cardiac chest pain Departure Information Dispostion Home / Self-Care Condition GOOD Referrals Coral Crisostomo D.O. (PCP) Patient Instructions ED Chest Pain NonCardiac, [facility] Additional Instructions You were seen in the emergency department today for left arm and jaw pain. Cardiac workup here was negative and you have been asymptomatic for almost 24 hours. I do recommend close follow-up with your PCP within 1 week for reevaluation and ongoing monitoring. As discussed, you may need a repeat stress test performed. Ibuprofen(Motrin, Advil) may be used for fever or pain. Use 600mg every six hours as needed. Take with food. Avoid using more than 2400mg in a 24 hour period. Do not use 2400mg per day for more than three consecutive days without physician direction. Prolonged inappropriate use can lead to stomach upset or ulcers. (AND/OR) Acetaminophen(Tylenol) may be used for fever or pain. Use 1000mg every six hours as needed. Avoid using more than 3000mg in a 24 hour period. Ice the extremity as needed for discomfort. Use a barrier device between the ice and your skin. Follow-up with your PCP within 1 week. Return to the ED for any exertional chest pain, dyspnea, exertional arm or jaw pain, passing out, dizziness or lightheadedness, or any other concerning symptoms. Problem Qualifiers
[2017-09-26 11:47] LABS: PTT PATIENT 25.6 SECONDS (21.0-31.0)
[2017-09-26 11:48] LABS: ALBUMIN 3.8 gm/dl (3.4-5.0); ALT/SGPT 27 U/L (12-78); BLOOD UREA NITROGEN 21 mg/dl (7-18); CARBON DIOXIDE 25 mmol/L (21-32); CREATININE 1.07 mg/dl (0.60-1.20); GLUCOSE 85 mg/dl (70-99); POTASSIUM 3.7 mmol/L (3.5-5.1); SODIUM 138 mmol/L (136-145)
[2017-09-26 11:53] LABS: ALKALINE PHOSPHATASE 79 U/L (45-117); AST/SGOT 17 U/L (15-37); CKMB 2.4 ng/ml (0.5-3.6); TOTAL PROTEIN 7.9 gm/dl (6.4-8.2)
--- NOTE | 2017-09-26 12:01 | DIAGNOSTIC IMAGING REPORT ---
TWO VIEW CHEST CLINICAL HISTORY: Atypical chest pain. FINDINGS: PA and lateral chest radiographs are compared to study dated 11/04/2016 and correlated with chest CT dated 01/16/2015. The cardiomediastinal silhouette is unremarkable. The lungs and pleural spaces are clear. There is no pneumothorax. The skeletal structures are osteopenic. The bony thorax appears intact. Cholecystectomy clips are noted in the right upper quadrant. IMPRESSION: No active disease in the chest. Electronically signed by: Marvel Munroe M.D. 09/26/2017 12:00 PM Dictated Date/Time: 09/26/2017 11:59 AM
[2017-09-26 12:50] VITALS: BP 137/73; PULSE 88; O2SAT 99
== END 2017-09-26 12:49 | disposition home or self-care (01) ==
LOC: C.EDB 10:20 → C.EDC 12:49
DX: M79.602 Pain in left arm (principal); R68.84 Jaw pain; R07.89 Other chest pain; K21.9 Gastro-esophageal reflux disease without esophagitis

== ENCOUNTER → 2017-10-13 | Outpatient (CLI) | payer BC ==
[~2017-10-13] MED LIST changes: -LEVO50TA PO; +THY/30 PO
--- NOTE | 2017-10-13 14:23 | DIAGNOSTIC IMAGING REPORT ---
LEFT SHOULDER 3 VIEWS HISTORY: LEFT SHOULDER PAIN COMPARISON: Chest 09/26/2017. FINDINGS: No fracture or dislocation within the left shoulder. The left clavicle demonstrates mild distal resorption. This may be due to old trauma or old postoperative changes. This remains unchanged. Soft tissues are unremarkable. No radiopaque foreign bodies. Cartilage spaces are maintained for age. IMPRESSION: No fracture or dislocation within the left shoulder. Electronically signed by: Daniele Joseph M.D. 10/13/2017 2:21 PM Dictated Date/Time: 10/13/2017 2:19 PM
== END | disposition home or self-care (01) ==
LOC: C.RDSM 18:33
PROVIDERS: ATTEND Physician Assistant
DX: R52 Pain, unspecified (principal)

== ENCOUNTER → 2018-01-02 | Outpatient (CLI) | payer BC ==
--- NOTE | 2018-01-02 09:35 | DIAGNOSTIC IMAGING REPORT ---
R FOOT MIN 3 VIEWS ROUTINE HISTORY: 62 years-old Female STRESS FRACTURE acute right foot pain COMPARISON: Right foot radiographs 08/02/2017 TECHNIQUE: 3 views of the right foot FINDINGS: There is an acute obliquely oriented fracture of the mid to distal diaphyseal fifth metatarsal with 2 mm medial displacement of the distal fracture fragment. The fracture appears to be incomplete through the medial cortex. Mild associated soft tissue swelling. Mild marginal spurring about the first MTP joint. No additional acute fracture or dislocation. Small plantar enthesophyte about the calcaneus. IMPRESSION: Acute oblique fracture of the fifth metatarsal with only minimal displacement. The above report was generated using voice recognition software. It may contain grammatical, syntax or spelling errors. Electronically signed by: Sotero Moraels M.D. 01/02/2018 9:33 AM Dictated Date/Time: 01/02/2018 9:31 AM
== END | disposition home or self-care (01) ==
LOC: C.RAD1850 09:22
PROVIDERS: ATTEND Family Medicine
DX: M84.374D Stress fracture, right foot, subsequent encounter for fracture with routine healing (principal)

== ENCOUNTER → 2018-01-16 | Outpatient (CLI) | payer BC ==
--- NOTE | 2018-01-16 08:49 | DIAGNOSTIC IMAGING REPORT ---
R FOOT MIN 3 VIEWS CLINICAL HISTORY: 62 years-old Female presenting with RIGHT FOOT FX. TECHNIQUE: Frontal, oblique, and lateral views of the right foot were obtained. COMPARISON: 01/02/2018. FINDINGS: Oblique fracture of the mid to distal diaphysis of the fifth metatarsal extending from the medial cortex proximally to the lateral cortex distally. There is up to 2 mm of diastases at the fracture plane at the distal portion. Trace valgus angulation unchanged. Overlying soft tissue swelling is unchanged. No new osseous abnormality. IMPRESSION: No change in alignment of the oblique fracture of the diaphysis of the fifth metatarsal. Electronically signed by: Krish Radford M.D. 01/16/2018 8:48 AM Dictated Date/Time: 01/16/2018 8:46 AM
== END | disposition home or self-care (01) ==
LOC: C.RDSM 08:00
PROVIDERS: ATTEND Physician Assistant
DX: S92.351D Displaced fracture of fifth metatarsal bone, right foot, subsequent encounter for fracture with routine healing (principal); X58.XXXD Exposure to other specified factors, subsequent encounter; Z88.1 Allergy status to other antibiotic agents; Z88.5 Allergy status to narcotic agent